=== PATIENT | male | born 1990 | race Caucasian/White ===

== ENCOUNTER 2022-02-19 09:02 | Outpatient (CLI) | payer OTHER, SELFPAY ==
[2022-02-19 09:59] LABS: Erythrocyte Sedimentation Rate 3 mm/hr (0-20)
[2022-02-19 10:01] LABS: Absolute Lymphocyte Count 1.88 X10^3/uL (0.83-4.51); Absolute Neutrophil Count 3.2 X10^3/uL (2.0-7.7); Basophil# 0.08 X10^3/uL; Basophil% 1.4 % (0-1); Eosinophil# 0.07 X10^3/uL; Eosinophils% 1.2 % (0-5); Hematocrit 47.4 % (40-54); Hemoglobin 15.9 g/dL (13.0-16.5); Lymphocyte # 1.88 X10^3/ul (0.83-4.51); Lymphocyte % 32.6 % (19-41); Mean Corp Hgb Conc 33.5 g/dL (32-36); Mean Corpuscular Hgb 29.8 pg (27.0-32.0); Mean Corpuscular Volume 88.9 fL (80-94); Mean Platelet Vol. 8.8 fl (6.2-12.0); Monocyte# 0.53 X10^3/uL; Monocyte% 9.2 % (0-10); NRBC Flagged by Analyzer 0 % (0-5); Neutrophil # 3.19 X10^3/uL (2.7-7.7); Neutrophil % 55.3 % (47-70); Platelet Count 349 K/mm3 (150-450); RBC Distribution Width CV 11.9 % (11.6-14.6); RBC Distribution Width SD 38.5 fl (35.1-43.9); Red Blood Count 5.33 M/mm3 (4.6-6.2); White Blood Count 5.8 K/mm3 (4.4-11.0)
[2022-02-19 10:07] LABS: Prothrombin Time (Protime)PT. 12.4 SECONDS (11.7-14.9)
[2022-02-19 10:37] LABS: ALB/GLOB Ratio 1.1 RATIO (0.9-2.4); AST(SGOT) 23 U/L (15-37); Alanine Aminotransfer ALT/SGPT 59 U/L (16-61); Albumin, Serum 4.2 g/dL (3.2-5.0); Alkaline Phosphatase 85 U/L (45-117); Anion Gap 4 (5-15); BUN 16 mg/dL (7-18); BUN/Creat Ratio 16.3 RATIO (10-20); Bilirubin, Direct 0.06 mg/dL (0.00-0.30); CRP < 2.90 mg/L (0.0-3.0); Calcium,Total 9.6 mg/dL (8.5-10.1); Chloride 107 mmol/L (98-107); Cholesterol 224 mg/dL (200); Creatinine, Serum 0.98 mg/dL (0.70-1.30); EST Glomerular Filtration Rate 95 mL/min (>60); Est Glom Filt Rate - Afr Amer 115 mL/min (>60); Globulin 3.7 g/dL (2.2-4.2); Glucose 96 mg/dL (74-106); High Density Lipoprotein 43 mg/dL; Potassium 4.4 mmol/L (3.5-5.1); Protein, Total 7.9 g/dL (6.4-8.2); Sodium Level 138 mmol/L (136-145); Triglycerides 123 mg/dL; Very Low Density Lipoprotein 25 mg/dL (5-40)
[2022-02-20 15:09] LABS: Endomysial Antibody IgA Negative (Negative)
[2022-02-20 15:34] LABS: Immunoglobulin A 288 mg/dL (90-386); t-Transglutaminase IgA <2 U/mL (0-3)
== END 2022-02-19 23:59 | disposition home or self-care (01) ==
LOC: LAB 09:05
PROVIDERS: PCP Family Medicine; Visit Provider Nurse Practitioner Adult Health
DX: R10.11 Right upper quadrant pain (principal); R19.7 Diarrhea, unspecified; R14.0 Abdominal distension (gaseous); K62.89 Other specified diseases of anus and rectum; K76.0 Fatty (change of) liver, not elsewhere classified
CPT/HCPCS: 36415; 80053; 80061; 82248; 82784; 83516; 85025; 85610; 85652; 86140; 86255

== ENCOUNTER 2022-03-05 18:52 | Outpatient (CLI) | payer OTHER, SELFPAY ==
--- NOTE | 2022-03-05 18:57 | CT_ITS ---
STUDY: CT ABDOMEN AND PELVIS WITH CONTRAST REASON FOR EXAM: Male, 31 years old. abd pain RUQ, RLQ, rectal pain; diarrhea -- oral and IV please RADIATION DOSAGE (If Supplied By Facility): CTDIvol = ( 9.74 ) mGy, DLP = ( 727.81 ) mGycm TECHNIQUE: Transaxial images were obtained from the dome of the diaphragm to the symphysis pubis without oral contrast. Oral and amp; IV Readi-CAT and amp; 75mL Isovue-370 was administered. Sagittal and coronal images were reconstructed. Individualized dose optimization techniques were used for this CT. COMPARISON: None. FINDINGS: The visualized lung bases are unremarkable. The visualized portions of the heart are within normal limits. Normal liver. Normal gallbladder and extrahepatic biliary system. Normal spleen. Normal pancreas. Normal bilateral adrenal glands. Punctate nonobstructive right nephrolithiasis. No adjacent ureteral nephrosis. Normal left kidney. Normal visualized stomach. Normal small intestine. Mild increased stool scattered in the colon and rectum. Enteric contrast transits unobstructed into the proximal colon. The appendix is visualized and appears normal. Normal abdominal aorta. Normal inferior vena cava. Normal retroperitoneum. Normal urinary bladder. Normal abdominal wall. Normal osseous structures. CT/Abdomen/Pelvis WITH Contrast IMPRESSION: 1. No bowel dilatation or bowel wall thickening. 2. Mild increased stool in the colon and rectum, correlate for constipation or fecal impaction. 3. Nonobstructive right nephrolithiasis. No hydroureteronephrosis. 4. Normal appendix. Electronically Signed: Rudy Hutton MD at 7:06 EDT ,
== END 2022-03-05 23:59 | disposition home or self-care (01) ==
PROVIDERS: PCP Family Medicine; Visit Provider Nurse Practitioner Adult Health
DX: R10.11 Right upper quadrant pain (principal); R19.7 Diarrhea, unspecified; K62.89 Other specified diseases of anus and rectum; K76.0 Fatty (change of) liver, not elsewhere classified
CPT/HCPCS: 74177; Q9967

== ENCOUNTER → 2022-04-06 | Outpatient (CLI) | payer OTHER, SELFPAY ==
--- NOTE | 2022-04-06 09:21 | US_ITS ---
STUDY: ABDOMINAL ULTRASOUND - ELASTOGRAPHY REASON FOR VISIT: Male, 31 years old. Fatty infiltration of the liver. TECHNIQUE: Liver stiffness measurements were obtained on a Workboard RS 85 ultrasound machine using a CA 1-7 probe following the SRU guidelines. 3 measurements were obtained using a 2-D-SWE method. The IQR/M was 18% suggesting a quality data set. TECHNICAL QUALITY: Adequate. COMPARISON: Comparison is made with prior study done earlier today. FINDINGS: Liver: Fatty infiltration of the liver. Median liver stiffness measured 4.9 kPa. US/Elastography Parenchyma/Organ IMPRESSION: Liver stiffness measures 4.9 kPa compatible with F0-F1 (Normal to mild liver fibrosis) Metavir score. Electronically Signed: Antoine Abad MD at 10:55 EDT ,
--- NOTE | 2022-04-06 09:22 | US_ITS ---
STUDY: ABDOMINAL ULTRASOUND - RIGHT UPPER QUADRANT REASON FOR VISIT: Male, 31 years old STEATOSIS OF LIVER TECHNIQUE: Ultrasound evaluation of the right upper quadrant was performed with real-time and static gloria-scale imaging. TECHNICAL QUALITY: Adequate. COMPARISON: None. FINDINGS: Liver: The liver measures 17.4 cm. There is increased echogenicity consistent with fatty infiltration. Focal fatty sparing in the region of the gallbladder fossa. The bile ducts are within normal limits. There is hepatic color flow. The direction of portal flow is hepatopetal. There is no demonstrated mass lesion. Gallbladder: Normal distended gallbladder. The gallbladder wall measures 1.9 mm. There is a negative sonographic Harp''s sign. There is no pericholecystic fluid. There are no gallstones. Common Bile Duct (C.B.D.): The common bile duct measures 5.1 mm. Pancreas: Normal size of the head, body and tail of the pancreas. There is normal echogenicity of the pancreas. There is no demonstrated pancreatic mass or cyst. Right Kidney: Normal size of the right kidney. The right kidney measures 12 cm x 5.6 x 5.2 cm. Normal renal cortex. The right cortex measures 1.8 cm. There is no demonstrated renal mass or cyst. There is no right hydronephrosis. US/Abdomen Limited IMPRESSION: Fatty infiltration of the liver with focal fatty sparing in the region of the gallbladder fossa. Electronically Signed: Antoine Abad MD at 10:54 EDT ,
== END | disposition home or self-care (01) ==
LOC: US 09:12
PROVIDERS: PCP Family Medicine; Referring Provider Nurse Practitioner Adult Health; Visit Provider Nurse Practitioner Adult Health
DX: K76.0 Fatty (change of) liver, not elsewhere classified (principal)
CPT/HCPCS: 76705; 76981

== ENCOUNTER 2022-05-14 11:07 | Day surgery (SDC) | payer OTHER, SELFPAY ==
[2022-05-14] VITALS (7 sets, daily range): BP systolic 118–161; BP diastolic 78–92; PULSE 84–118; RESP 16; TEMP 36.1–36.7; O2SAT 96–98; BMI 27.2
[2022-05-14] MEDS: Lactated Ringers 1,000 ML 15 ML IV (11:36)
--- NOTE | 2022-05-14 11:48 | HP.PCM_ITS ---
History and Physical Date of Admission: 05/14/22 31 M who presents to the office today for one month f/u chronic RUQ pain, RLQ discomfort and bloating, rectal pain, change in bowels typically diarrhea, fatty liver on US, occas heartburn. We did a biochemical work-up that included inflammatory markers, lipids, liver profile. Labs were unremarkable other than mildly elevated cholesterol. His CT showed nothing worrisome, it did show constipation especially in the rectum. We had him try MiraLAX daily. He reports the MiraLAX seem to be helpful, he stopped it after a week and bowel movements seems to remain more regular. He tends to alternate between constipation and diarrhea. He notes a fiber supplement helped before to regulat e that. Today he reports ongoing RUQ pain and increased heartburn. PPI treatment was unsuccessful previously. He gets relief with Rolaids. No dysphagia. EGD and colonoscopy are scheduled for May 03 12/22/21 RUQ US: --fatty liver --minimal sludge in gallbladder --normal CBD 3.6 mm 12/28/21 HIDA scan: --GB ejection fraction normal 61% ROS Const Constitutional: No fatigue ENT ENT: No difficulty swallowing Gastro GI: Positive for constipation, heartburn and excessive flatus; No abdominal pain, belching, bloating, change in bowel habits, change in stool character, coffee ground emesis, cramping, diarrhea, difficulty swallowing, feeling full early, incontinent of stools, Vomiting blood/hematemesis, Blood in stool, loose stools, Black,tarry stools, nausea/dyspepsia, pain with swallowing, vomiting or other Musc Musculoskeletal: No joint pain Skin Skin: Positive for dry skin and itchy eyes; No yellowing of the eye Psych Psychiatric: No anxiety and No depression Endo Endocrine: No fatigue Aller/Imm Allergy/Immunologic: Positive for itchy eyes Praveen/Lymp Hematologic/Lymphatic: No easy bleeding or easy bruising Exam Const General: cooperative, no acute distress, well developed, well groomed and anxious Quality Reporting Tobacco Screening ([facility] 138) Smoking Status: Never smoker Assessment and Plan Assessment and Plan (1) Fatty liver: Status: Acute Orders: Orders: Elastography Parenchyma/Organ Today Plan - Velia Tirado CLINICAL UNIT EDUCATOR, CLINICAL UNIT EDUCATOR-C: We reviewed his results. Labs look good, just mild elevation in cholesterol which he can likely manage with lifestyle changes. Will get liver elastography to complete the eval of fatty liver. (2) RUQ abdominal pain: Status: Acute Plan - Velia Tirado CLINICAL UNIT EDUCATOR, CLINICAL UNIT EDUCATOR-C: No relief with PPI previously. Will try famotidine 40 mg daily until his EGD. (3) Irritable bowel syndrome with both constipation and diarrhea: Status: Acute Plan - Velia Tirado CLINICAL UNIT EDUCATOR, CLINICAL UNIT EDUCATOR-C: Try a daily fiber supplement since that has helped to regulate his bowels in the past. Plan Details Other Medications: New: famotidine 40 mg PO DAILY 30 tabs 1RF I have re-examined the patient. There are no clinical changes since date of exam.
--- NOTE | 2022-05-14 12:15 | EGD_PTH ---
PATIENT: ERIC LANDRY LOC: EN U#:[id number] AGE/SX: 31/M ROOM: RE05/14/[address]: Dr. Иван Ramon DO : 1990 BED: DIS: 05/14/2022 SPEC #: [id number] RECD: 05/14/22 12:47 STATUS: JOHN ANNIE #: [id number] SOHAIL: 05/14/22 12:[address]: Иван Ramon DEPT: SURGICAL PATHOLOGY RECD BY: Jada Anglin ENTERED: 05/14/22 13:19 SP TYPE: EGD BIOPSY OT DR: Dr. Oscar Howard MD Tissues: A - Duodenum, NOS B - Gastric mucous membrane C - Esophagus, NOS D - Ileum, NOS E - Cecum, NOS F - COLON BIOPSY Procedures: Special Stain Group II Surgery Specimen Level IV Alcian Blue/PAS (control) HEADER OPERATION: [place] [place] DIAGNOSIS: Right upper quadrant pain, right lower quadrant discomfort, bloating, rectal pain, fatty liver, heartburn TISSUE SUBMITTED: A - Duodenal biopsy, B - Antral biopsy and H. pylori, C - Distal esophagus biopsy, D - Terminal ileum biopsy, E - Cecum biopsy, F - Random colonic biopsy MICROSCOPIC DIAGNOSIS A. Duodenum, biopsy: No pathologic change. B. Gastric antrum, biopsy: Chronic gastritis. See comment. C. Distal esophagus, biopsy: Gastroesophageal junctional mucosa with chronic inflammation. Focal changes of reflux. No evidence of goblet cell metaplasia. See comment. D. Terminal ileum, biopsy: Prominent benign lymphoid aggregates. See comment. E. Cecum, biopsy: No pathologic change. F. Colon, random biopsy: No pathologic change. AM:peter 05/15/2022 COMMENT B. The results of immunohistochemistry for Helicobacter pylori will be reported separately ([id number]). C. Alcian blue/PAS stain with matched control supports the above diagnosis. D. Immunohistochemistry ([id number]) supports the above diagnosis. MICROSCOPIC DESCRIPTION Slides are reviewed. GROSS DESCRIPTION A - Received in fixative is one container labeled with the patient's name and designated duodenal biopsy. The specimen consists of multiple irregular fragments of light weiss soft tissue that in aggregate measure 1.5 x 0.3 x 0.1 cm. The specimen is totally submitted in one cassette. B - Received in fixative is one container labeled with the patient's name and designated antral biopsy. The specimen consists of two irregular fragments of light weiss soft tissue that in aggregate measure 0.5 x 0.5 x 0.1 cm. The specimen is totally submitted in one cassette. C - Received in fixative is one container labeled with the patient's name and designated distal esophagus biopsy. The specimen consists of multiple irregular fragments of light weiss soft tissue that in aggregate measure 1.5 x 0.3 x 0.1 cm. The specimen is totally submitted in one cassette. D - Received in fixative is one container labeled with the patient's name and designated terminal ileum biopsy. The specimen consists of multiple irregular fragments of light weiss soft tissue that in aggregate measure 1.5 x 0.4 x 0.1 cm. The specimen is totally submitted in one cassette. E - Received in fixative is one container labeled with the patient's name and designated cecum biopsy. The specimen consists of multiple irregular fragments of light weiss soft tissue that in aggregate measure 0.6 x 0.2 x 0.1 cm. The specimen is totally submitted in one cassette. F - Received in fixative is one container labeled with the patient's name and designated random colonic biopsy. The specimen consists of multiple irregular fragments of light weiss soft tissue that in aggregate measure 2 x 0.5 x 0.1 cm. The specimen is totally submitted in one cassette. / SJ:rg 05/14/2022 TC:3 CPT: 28472 x6, 49479
--- NOTE | 2022-05-14 12:15 | IMM_PTH ---
PATIENT: ERIC LANDRY LOC: EN U#:[id number] AGE/SX: 31/M ROOM: RE05/14/[address]: Dr. Иван Ramon DO : 1990 BED: DIS: 05/14/2022 SPEC #: [id number] RECD: 05/14/22 13:36 STATUS: JOHN REQ #: [id number] SOHAIL: 05/14/22 12:[address]: Иван Ramon DEPT: IMMUNOHISTOCHEMISTRY RECD BY: Rosemarie Santiago ENTERED: 05/14/22 13:39 SP TYPE: IMMUNO OTHR DR: Dr. Oscar Howard MD Tissues: B - Stomach, NOS D - Ileum, NOS Procedures: H Pylori (initial) CD20 (add) CD45 (add) CD5 (add) CD79A (add) KI-67 (add) CD3 (initial) PHYSICIAN & INSTITUTION [place] [address] SPECIMEN INFORMATION: Tissue Source: B ? Antral biopsy, D ? Terminal ileum biopsy Clinical Info: Right upper quadrant pain, right lower quadrant discomfort, bloating, rectal pain, fatty liver Specimen Number: [id number] B & D CPT code: 48528 x2, 33191 x5 METHODOLOGY: Deparaffinized sections of prefer/formalin-fixed tissue or PAP/DQ stained slides are incubated with monoclonal/polyclonal antibodies/oligonucleotide probes. Localization is made via biotin free immunoperoxidase method. Appropriate controls are performed and reacted as expected. Results on target cell population are indicated in the following table: RESULTS: ANTIBODY / CLONE RESULT Block B H Pylori (polyclonal) negative Block D CD3 (PS1) positive CD5 (SP10) positive CD20 (L26) positive CD45 (RP2/18) positive CD79a (11E3) positive Ki-67 (30-9) negative These tests were developed and their performance characteristics determined by [facility]. They may not have been cleared or approved by the U.S. Food and Drug Administration. The FDA has determined that such clearance or approval is not necessary. The above immunohistochemical/dualISH markers are ordered and reviewed by the Pathologist. INTERPRETATION: B. Antral biopsy: Negative for Helicobacter pylori organisms. D. Terminal ileum, biopsy: Benign lymphoid aggregates. AM:peter 05/16/2022
--- NOTE | 2022-05-14 12:37 | OP.EGD_ITS ---
Patient Name: Dexter Rebolledo Procedure Date: 05/14/2022 11:55 AM Date of : 1990 Age: 31 Procedure: Upper GI endoscopy Indications: Epigastric abdominal pain, Functional Dyspepsia, Heartburn Providers: Иван Ramon DO Referring MD: sOcar Howard Medicines: Monitored Anesthesia Care Patient Profile: This is a 31 year old male. Refer to note in patient chart for documentation of history and physical. Patient has symptoms of acute epigastric abdominal pain and chronic dyspepsia. Complications: No immediate complications. Procedure: Pre-Anesthesia Assessment: - Prior to the procedure, a History and Physical was performed, and patient medications and allergies were reviewed. The risks and benefits of the procedure and the sedation options and risks were discussed with the patient. All questions were answered and informed consent was obtained. Patient identification and proposed procedure were verified by the physician in the pre-procedure area. Mental Status Examination: alert and oriented. Airway Examination: normal oropharyngeal airway and neck mobility. Respiratory Examination: clear to auscultation. CV Examination: normal. Prophylactic Antibiotics: The patient does not require prophylactic antibiotics. Prior Anticoagulants: The patient has taken no previous anticoagulant or antiplatelet agents. ASA Grade Assessment: II - A patient with mild systemic disease. After reviewing the risks and benefits, the patient was deemed in satisfactory condition to undergo the procedure. The anesthesia plan was to use moderate sedation / analgesia (conscious sedation). Immediately prior to administration of medications, the patient was re-assessed for adequacy to receive sedatives. The heart rate, respiratory rate, oxygen saturations, blood pressure, adequacy of pulmonary ventilation, and response to care were monitored throughout the procedure. The physical status of the patient was re-assessed after the procedure. After obtaining informed consent, the endoscope was passed under direct vision. Throughout the procedure, the patient's blood pressure, pulse, and oxygen saturations were monitored continuously. The colonoscope was introduced through the mouth, and advanced to the second part of duodenum. The upper GI endoscopy was accomplished without difficulty. The patient tolerated the procedure well. Scope In: 12:10:10 PM Scope Out: 12:17:11 PM Total Procedure Duration Time 0 hours 7 minutes 1 second Findings: LA Grade B (one or more mucosal breaks greater than 5 mm, not extending between the tops of two mucosal folds) esophagitis with no bleeding was found 34 to 36 cm from the incisors. Biopsies were taken with a cold forceps for histology. Verification of patient identification for the specimen was done. Estimated blood loss was minimal. Patchy mildly erythematous mucosa without bleeding was found in the gastric body. Biopsies were taken with a cold forceps for histology. Verification of patient identification for the specimen was done. Estimated blood loss was minimal. Localized mildly erythematous mucosa without active bleeding and with no stigmata of bleeding was found in the first portion of the duodenum. Biopsies were taken with a cold forceps for histology. Verification of patient identification for the specimen was done. Estimated blood loss was minimal. Impression: - LA Grade B reflux esophagitis. Biopsied. - Erythematous mucosa in the gastric body. Biopsied. - Erythematous duodenopathy. Biopsied. Recommendation: - Discharge patient to home. - Resume previous diet. - Continue present medications. - Await pathology results. Procedure Code(s): --- Professional --- 53999, Esophagogastroduodenoscopy, flexible, transoral; with biopsy, single or multiple CPT copyright 2017 [employer] [place] [employer]. All rights reserved. The codes documented in this report are preliminary and upon marketing data specialist review may be revised to meet current compliance requirements. Иван Ramon DO 05/14/2022 12:37:40 PM This report has been signed electronically. Number of Addenda: 1 Note Initiated On: 05/14/2022 11:55 AM Addendum Number: 1 Addendum Date: 09/04/2022 6:23:35 AM MAC was used as sedation for this procedure. Иван Ramon DO 09/04/2022 6:23:41 AM This report has been signed electronically.
--- NOTE | 2022-05-14 12:37 | OP.CCLET_ITS ---
09/04/2022 Oscar Howard Re : Upper GI endoscopy procedure for Dexter Rebolledo Nic Howard This procedure was performed on Saturday, May 14, 2022. My impressions and recommendations are as follows: Impressions : - LA Grade B reflux esophagitis. Biopsied. - Erythematous mucosa in the gastric body. Biopsied. - Erythematous duodenopathy. Biopsied. Recommendations : - Discharge patient to home. - Resume previous diet. - Continue present medications. - Await pathology results. My findings are described in the full procedure note, which is enclosed. If I can be of further assistance, please feel free to contact me at . Sincerely, Иван Ramon, 05/14/2022 12:37:40 PM This report has been signed electronically.
--- NOTE | 2022-05-14 12:41 | OP.COLON_ITS ---
Patient Name: Dexter Rebolledo Procedure Date: 05/14/2022 12:17 PM Date of : 1990 Age: 31 Procedure: Colonoscopy Indications: Generalized abdominal pain, Clinically significant diarrhea of unexplained origin Providers: Иван Ramon DO Referring MD: Oscar Howard Medicines: Monitored Anesthesia Care Patient Profile: This is a 31 year old male. Refer to note in patient chart for documentation of history and physical. Patient has symptoms of acute epigastric abdominal pain and chronic dyspepsia. Last Colonoscopy: none. The patient's first colonoscopy is today. Complications: No immediate complications. Procedure: Pre-Anesthesia Assessment: - Prior to the procedure, a History and Physical was performed, and patient medications and allergies were reviewed. The risks and benefits of the procedure and the sedation options and risks were discussed with the patient. All questions were answered and informed consent was obtained. Patient identification and proposed procedure were verified by the physician in the pre-procedure area. Mental Status Examination: alert and oriented. Airway Examination: normal oropharyngeal airway and neck mobility. Respiratory Examination: clear to auscultation. CV Examination: normal. Prophylactic Antibiotics: The patient does not require prophylactic antibiotics. Prior Anticoagulants: The patient has taken no previous anticoagulant or antiplatelet agents. ASA Grade Assessment: II - A patient with mild systemic disease. After reviewing the risks and benefits, the patient was deemed in satisfactory condition to undergo the procedure. The anesthesia plan was to use moderate sedation / analgesia (conscious sedation). Immediately prior to administration of medications, the patient was re-assessed for adequacy to receive sedatives. The heart rate, respiratory rate, oxygen saturations, blood pressure, adequacy of pulmonary ventilation, and response to care were monitored throughout the procedure. The physical status of the patient was re-assessed after the procedure. - Prior to the procedure, a History and Physical was performed, and patient medications and allergies were reviewed. The patient is competent. The risks and benefits of the procedure and the sedation options and risks were discussed with the patient. All questions were answered and informed consent was obtained. Patient identification and proposed procedure were verified by the physician in the pre-procedure area. Mental Status Examination: normal. Prophylactic Antibiotics: The patient does not require prophylactic antibiotics. Prior Anticoagulants: The patient has taken heparin, last dose was 1 day prior to procedure. ASA Grade Assessment: II - A patient with mild systemic disease. After reviewing the risks and benefits, the patient was deemed in satisfactory condition to undergo the procedure. The anesthesia plan was to use moderate sedation / analgesia (conscious sedation). Immediately prior to administration of medications, the patient was re-assessed for adequacy to receive sedatives. The heart rate, respiratory rate, oxygen saturations, blood pressure, adequacy of pulmonary ventilation, and response to care were monitored throughout the procedure. The physical status of the patient was re-assessed after the procedure. After I obtained informed consent, the scope was passed under direct vision. Throughout the procedure, the patient's blood pressure, pulse, and oxygen saturations were monitored continuously. The colonoscope was introduced through the anus and advanced to the terminal ileum. The colonoscopy was performed without difficulty. The patient tolerated the procedure well. The quality of the bowel preparation was good. Scope In: 12:19:40 PM Scope Withdrawal Time 0 hours 8 minutes 53 seconds Scope Out: 12:31:32 PM Total Procedure Duration Time 0 hours 11 minutes 52 seconds Findings: The perianal and digital rectal examinations were normal. An area of mildly congested mucosa was found in the sigmoid colon, in the descending colon, at the splenic flexure and at the hepatic flexure. Biopsies were taken with a cold forceps for histology. Verification of patient identification for the specimen was done. Estimated blood loss was minimal. Discontinuous areas of nonbleeding ulcerated mucosa with no stigmata of recent bleeding were present in the cecum. Biopsies were taken with a cold forceps for histology. Verification of patient identification for the specimen was done. Estimated blood loss was minimal. A localized area of the terminal ileum was congested. Biopsies were taken with a cold forceps for histology. Verification of patient identification for the specimen was done. Estimated blood loss was minimal. Impression: - Congested mucosa in the sigmoid colon, in the descending colon, at the splenic flexure and at the hepatic flexure. Biopsied. - Mucosal ulceration. Biopsied. - Congested mucosa in the terminal ileum. Biopsied. Recommendation: - Discharge patient to home. - Resume previous diet. - Continue present medications. - Await pathology results. - Repeat colonoscopy in 5 years for surveillance based on pathology results. - Return to GI office. Procedure Code(s): --- Professional --- 66420, Colonoscopy, flexible; with biopsy, single or multiple CPT copyright 2017 [employer]. All rights reserved. The codes documented in this report are preliminary and upon supervisor sample review may be revised to meet current compliance requirements. Иван Ramon DO 05/14/2022 12:40:48 PM This report has been signed electronically. Number of Addenda: 1 Note Initiated On: 05/14/2022 12:17 PM Addendum Number: 1 Addendum Date: 09/04/2022 6:23:48 AM MAC was used as sedation for this procedure. Иван Ramon DO 09/04/2022 6:23:53 AM This report has been signed electronically.
--- NOTE | 2022-05-14 12:41 | OP.CCLET_ITS ---
09/04/2022 Oscar Howard Re : Colonoscopy procedure for Dexter Carusomor Howard This procedure was performed on Saturday, May 14, 2022. My impressions and recommendations are as follows: Impressions : - Congested mucosa in the sigmoid colon, in the descending colon, at the splenic flexure and at the hepatic flexure. Biopsied. - Mucosal ulceration. Biopsied. - Congested mucosa in the terminal ileum. Biopsied. Recommendations : - Discharge patient to home. - Resume previous diet. - Continue present medications. - Await pathology results. - Repeat colonoscopy in 5 years for surveillance based on pathology results. - Return to GI office. My findings are described in the full procedure note, which is enclosed. If I can be of further assistance, please feel free to contact me at . Sincerely, Иван Ramon, 05/14/2022 12:40:48 PM This report has been signed electronically.
== END 2022-05-14 13:45 | disposition home or self-care (01) ==
LOC: EN 11:07 → AC 11:09
PROVIDERS: PCP Family Medicine; Referring Provider Family Medicine; Visit Provider Internal Medicine Gastroenterology
PROC: 0DJD8ZZ Inspection of Lower Intestinal Tract, Via Natural or Artificial Opening Endoscopic (ICD-10-PCS; CPT 45378; principal; 2022-05-14 12:10)
DX: K29.50 Unspecified chronic gastritis without bleeding (principal); K21.00 Gastro-esophageal reflux disease with esophagitis, without bleeding; K76.0 Fatty (change of) liver, not elsewhere classified; K58.2 Mixed irritable bowel syndrome; K63.3 Ulcer of intestine
CPT/HCPCS: 45380; 43239; 88305; 88313; 88341; 88342; J7120; J2405

== ENCOUNTER → 2023-10-30 | Outpatient (CLI) | payer SELFPAY, OTHER ==
--- NOTE | 2023-10-30 09:54 | US_ITS ---
STUDY: ABDOMINAL ULTRASOUND - RIGHT UPPER QUADRANT; ELASTOGRAPHY REASON FOR VISIT: Male, 32 years old. Fatty infiltration of the liver. TECHNIQUE: Ultrasound evaluation of the right upper quadrant was performed with real-time and static gloria-scale imaging. Point quantification shear wave elastography was performed ([employer]). TECHNICAL QUALITY: Adequate. COMPARISON: Comparison is made with prior study April 06, 2022. FINDINGS: Liver: The liver measures 17.3 cm. There is increased echogenicity consistent with fatty infiltration. The bile ducts are within normal limits. There is hepatic color flow. The direction of portal flow is hepatopetal. There is no demonstrated mass lesion. Median liver stiffness measured 4.8 kPa. Gallbladder: Normal distended gallbladder. The gallbladder wall measures 1.5 mm. There is a negative sonographic Harp''s sign. There is no pericholecystic fluid. There are no gallstones. Common Bile Duct (C.B.D.): The common bile duct measures 4.6 mm. Pancreas: There is normal echogenicity of the visualized pancreas. There is no demonstrated pancreatic mass or cyst. Right Kidney: Normal size of the right kidney. The right kidney measures 12.7 cm x 5.6 cm x 4.6 cm. Normal renal cortex. The right cortex measures 1.7 cm. There is no demonstrated renal mass or cyst. There is no right hydronephrosis. US/ABD Limited w/ Elastography IMPRESSION: 1. Liver stiffness measures 4.8 kPa compatible with F0-F1 (Normal to mild liver fibrosis) Metavir score. Electronically Signed: Antoine Abad MD at 15:39 EST ,
== END | disposition home or self-care (01) ==
PROVIDERS: PCP Family Medicine; Referring Provider Internal Medicine; Visit Provider Internal Medicine
DX: K76.0 Fatty (change of) liver, not elsewhere classified (principal); K21.9 Gastro-esophageal reflux disease without esophagitis
CPT/HCPCS: 76705; 76981

== ENCOUNTER → 2024-01-06 | Outpatient (CLI) | payer OTHER, SELFPAY ==
--- OUTSIDE RECORDS SUMMARY | 2024-01-06 07:37 | XMS RPT_ITS | CCD ---
Author Name Unknown Address [address] [place] [address] Organization [facility] Care Team Providers Care Goodwill Ambassador Name Role Phone PEGGY LOBO MD Primary Care Unavailable PEGGY LOBO MD Admitting Unavailable LEEANNE PALOMINO Referring Unavailable LEEANNE PALOMINO Consulting Unavailable PEGGY LOBO MD Attending Unavailable PROVIDER, UNKNOWN Consulting Unavailable PROVIDER, UNKNOWN Consulting Unavailable PROVIDER, UNKNOWN Consulting Unavailable Results Test Name Value Interpretation Reference Range Facil ity Encounters Encounter Date Encounter Type Care Provider Facility Start: 03-28-2023 End: 03-28-2023 Emergency department patient visit PEGGY LOBO [facility] Payers Date Payer Category Payer Unknown [id number] Unknown [id number] Summary Purpose Family History No Family History Records Found Advance Directives No Advanced Directives Records Found Additional Source Comments (unrecognized sect ion and content) No Status Records Found INFORMATION SOURCE (unrecogn ized section and content) FOR RECORDS PERTAINING TO PATIENTS WHO ARE OR HAVE BEEN ENROLLED IN A CHEMICAL DEPENDENCY/SUBSTANCEABUSE PROGRAM, SOME INFORMATION MAY BE OMITTED. This clinical summary was aggregated from multiple sources. Caution should be exercised in using it in the provision of clinical care. This summary normalizes information from multiple sources, and as a consequence, information in this document may materially change the coding, format and clinical context of patient data. In addition, data may be omitted in some cases. CLINICAL DECISIONS SHOULD BE BASED ON THE PRIMARY CLINICAL RECORDS. [employer] provides no warranty or guarantee of the accuracy or completeness of information in this document.
[2024-01-06 08:02] LABS: Absolute Lymphocyte Count 2.54 X10^3/uL (0.83-4.51); Absolute Neutrophil Count 2.7 X10^3/uL (2.0-7.7); Basophil# 0.06 X10^3/uL; Eosinophil# 0.13 X10^3/uL; Eosinophils% 2.2 % (0-5); Hematocrit 46.7 % (40-54); Hemoglobin 15.2 g/dL (13.0-16.5); Lymphocyte # 2.54 X10^3/ul (0.83-4.51); Lymphocyte % 43.8 % (19-41); Mean Corp Hgb Conc 32.5 g/dL (32-36); Mean Corpuscular Hgb 29.6 pg (27.0-32.0); Mean Platelet Vol. 8.5 fl (6.2-12.0); Monocyte# 0.41 X10^3/uL; Monocyte% 7.1 % (0-10); NRBC Flagged by Analyzer 0 % (0-5); Neutrophil # 2.65 X10^3/uL (2.7-7.7); Neutrophil % 45.7 % (47-70); Platelet Count 333 K/mm3 (150-450); RBC Distribution Width SD 40.3 fl (35.1-43.9); Red Blood Count 5.13 M/mm3 (4.6-6.2); White Blood Count 5.8 K/mm3 (4.4-11.0)
[2024-01-06 08:35] LABS: ALB/GLOB Ratio 1.1 RATIO (0.9-2.4); AST(SGOT) 25 U/L (15-37); Alanine Aminotransfer ALT/SGPT 61 U/L (16-61); Albumin, Serum 3.9 g/dL (3.2-5.0); Alkaline Phosphatase 85 U/L (45-117); Anion Gap 1 (5-15); BUN 17 mg/dL (7-18); BUN/Creat Ratio 18.5 RATIO (10-20); CRP < 2.90 mg/L (0.0-3.0); Calcium,Total 9.3 mg/dL (8.5-10.1); Chloride 110 mmol/L (98-107); Cholesterol 224 mg/dL (200); Creatinine, Serum 0.92 mg/dL (0.70-1.30); EST Glomerular Filtration Rate 101 mL/min (>60); Est Glom Filt Rate - Afr Amer 123 mL/min (>60); Globulin 3.6 g/dL (2.2-4.2); Glucose 133 mg/dL (74-106); High Density Lipoprotein 46 mg/dL; Potassium 3.8 mmol/L (3.5-5.1); Protein, Total 7.5 g/dL (6.4-8.2); Sodium Level 138 mmol/L (136-145); Triglycerides 197 mg/dL; Very Low Density Lipoprotein 39 mg/dL (5-40)
[2024-01-06 12:02] LABS: Hemoglobin A1c 5.3 % (3.8-5.6)
== END | disposition home or self-care (01) ==
LOC: LAB 07:27
PROVIDERS: PCP Family Medicine; Referring Provider Internal Medicine; Visit Provider Internal Medicine
DX: K21.9 Gastro-esophageal reflux disease without esophagitis (principal); K76.0 Fatty (change of) liver, not elsewhere classified
CPT/HCPCS: 36415; 80053; 80061; 83036; 85025; 86140

== ENCOUNTER → 2024-07-13 | Outpatient (CLI) | payer OTHER, SELFPAY ==
[2024-07-13 07:31] LABS: Absolute Lymphocyte Count 2.25 X10^3/uL (0.83-4.51); Absolute Neutrophil Count 5.4 X10^3/uL (2.0-7.7); Basophil# 0.07 X10^3/uL; Basophil% 0.8 % (0-1); Eosinophil# 0.16 X10^3/uL; Eosinophils% 1.9 % (0-5); Hematocrit 45.4 % (40-54); Hemoglobin 14.9 g/dL (13.0-16.5); Lymphocyte # 2.25 X10^3/ul (0.83-4.51); Lymphocyte % 26.6 % (19-41); Mean Corp Hgb Conc 32.8 g/dL (32-36); Mean Corpuscular Hgb 29.2 pg (27.0-32.0); Mean Platelet Vol. 8.8 fl (6.2-12.0); Monocyte# 0.53 X10^3/uL; Monocyte% 6.3 % (0-10); NRBC Flagged by Analyzer 0 % (0-5); Neutrophil # 5.41 X10^3/uL (2.7-7.7); Platelet Count 298 K/mm3 (150-450); RBC Distribution Width CV 12.1 % (11.6-14.6); RBC Distribution Width SD 39.4 fl (35.1-43.9); White Blood Count 8.5 K/mm3 (4.4-11.0)
[2024-07-13 08:43] LABS: Vitamin D,25 Hydroxy 31.9 ng/mL
[2024-07-13 09:30] LABS: International Normalized Ratio 1.1; Prothrombin Time (Protime)PT. 13.8 SECONDS (11.7-14.9)
[2024-07-13 09:38] LABS: Hemoglobin A1c 5.3 % (3.8-5.6)
[2024-07-13 11:02] LABS: ALB/GLOB Ratio 1.1 RATIO (0.9-2.4); AST(SGOT) 32 U/L (15-37); Alanine Aminotransfer ALT/SGPT 56 U/L (16-61); Albumin, Serum 4.1 g/dL (3.2-5.0); Alkaline Phosphatase 82 U/L (45-117); Anion Gap 5 (5-15); BUN 17 mg/dL (7-18); BUN/Creat Ratio 18.2 RATIO (10-20); CRP < 2.90 mg/L (0.0-3.0); Calcium,Total 8.9 mg/dL (8.5-10.1); Chloride 107 mmol/L (98-107); Cholesterol 131 mg/dL (200); Creatinine, Serum 0.94 mg/dL (0.70-1.30); EST Glomerular Filtration Rate 99 mL/min (>60); Est Glom Filt Rate - Afr Amer 120 mL/min (>60); Globulin 3.6 g/dL (2.2-4.2); Glucose 129 mg/dL (74-106); High Density Lipoprotein 43 mg/dL; Protein, Total 7.7 g/dL (6.4-8.2); Sodium Level 138 mmol/L (136-145); Triglycerides 227 mg/dL; Very Low Density Lipoprotein 45 mg/dL (5-40)
== END | disposition home or self-care (01) ==
LOC: LAB 07:11
PROVIDERS: PCP Family Medicine; Referring Provider Internal Medicine; Visit Provider Internal Medicine
DX: K76.0 Fatty (change of) liver, not elsewhere classified (principal); K21.9 Gastro-esophageal reflux disease without esophagitis; E78.5 Hyperlipidemia, unspecified
CPT/HCPCS: 36415; 80053; 80061; 82306; 83036; 85025; 85610; 86140